=== PATIENT | female | born 1935 | race Caucasian/White ===

== ENCOUNTER 2017-02-26 12:38 | Emergency (ER) | payer OTHER, MEDICARE ==
[~2017-02-26] VITALS: Ht 165.1 cm; Wt 61.2 kg
--- NOTE | ~2017-02-26 | EKG ---
[place] [address] [facility] [place] [address] ELECTROCARDIOGRAM REPORT Name: RYLEE ARIAS Room #: [facility] M.R.#: [id number] Admission: Attend Phys: Discharge: Date of : 31 Report #: [id number] THIS REPORT FOR: //name// [facility] ED Test Date: 2017-02-26 Test Time: 14:14:23 Pat Name: RYLEE ARIAS Department: Room: Gender: F Medical Records Clerk: KERON : 1935 Requested By: Deion Gee Order Number: [id number] MD: Carlos Enrique Perez Measurements Intervals [place] Rate: 54 P: 67 ID: [id number] QRS: -9 QRSD: 93 T: 22 QT: 426 QTc: 404 Interpretive Statements Sinus rhythm Low voltage, extremity leads Abnormal R-wave progression, early transition Compared to ECG 04/30/2008 07:18:21 No significant changes Electronically Signed On 02-26-2017 14:17:22 CDT by Carlos Enrique Perez [email or web address] <ELECTRONICALLY SIGNED> By: Carlos Enrique Perez MD 02/26/17 1417 1414 1414 MD MICHAEL Chávez
[2017-02-26 14:40] LABS: ABSOLUTE NEUTROPHILS 4.3 thou/uL (1.4-8.2); BASOPHILS 0.8 % (0.0-2.0); EOSINOPHILS 2.3 % (0.0-3.0); HEMATOCRIT 39.1 % (37.0-47.0); HEMOGLOBIN 13.1 gm/dL (12.0-15.0); LYMPHOCYTES 31.5 % (24.0-44.0); MANUAL DIFF NO; MCH 30.8 pg (26.0-34.0); MCHC 33.5 g/dL (28.0-37.0); MONOCYTES 6.2 % (1.0-8.0); PLATELET COUNT 206 thou/uL (150-400); POLYS 59.2 % (36.0-66.0); RBC 4.24 mil/uL (4.20-5.00); RDW 13.6 % (10.5-14.5); WBC 7.2 thou/uL (4.0-11.0)
[2017-02-26 14:50] LABS: CALCIUM 9.3 mg/dL (8.5-10.1); CREATININE 0.8 mg/dL (0.6-1.0); POTASSIUM 4.1 mmol/L (3.5-5.1)
[2017-02-26 14:57] LABS: ALBUMIN 3.8 g/dL (3.4-5.0); TOTAL BILIRUBIN 0.5 mg/dL (<0.1-1.0); TOTAL PROTEIN 7.5 g/dL (6.4-8.2)
[2017-02-26] MEDS ORDERED: PRINIVIL20 MG PO (16:12)
[2017-02-26 16:36] VITALS: BP 172/61
== END 2017-02-26 16:46 | disposition home or self-care (01) ==
LOC: ER 12:38
PROVIDERS: Physician Assistant
DX: I10 Essential (primary) hypertension (principal); R42 Dizziness and giddiness; Z85.3 Personal history of malignant neoplasm of breast

== ENCOUNTER 2019-09-16 09:31 | Emergency (ER) | payer MEDICARE ==
[~2019-09-16] VITALS: Ht 162.6 cm; Wt 63.5 kg
[~2019-09-16 09:31] MED LIST: PRINIVIL20 MG PO
[2019-09-16] MEDS ORDERED: MOBIC7.5 MG PO (11:36)
[2019-09-16 12:00] VITALS: BP 158/74
== END 2019-09-16 11:45 | disposition home or self-care (01) ==
LOC: ER 09:31
DX: M13.831 Other specified arthritis, right wrist (principal); M13.841 Other specified arthritis, right hand; Z85.3 Personal history of malignant neoplasm of breast; Z90.11 Acquired absence of right breast and nipple

== ENCOUNTER 2021-04-29 12:38 | Emergency (ER) | payer MEDICARE ==
[~2021-04-29] VITALS: Ht 154.9 cm; Wt 59.0 kg
[~2021-04-29 12:38] MED LIST changes: +MOBIC7.5 MG PO
[2021-04-29 12:49] VITALS: BP 180/67
== END 2021-04-29 13:14 | disposition home or self-care (01) ==
LOC: ER 12:38
PROVIDERS: Nurse Practitioner Family
DX: U07.1 COVID-19 (principal)